=== PATIENT | male | born 1970 | race Caucasian/White ===

== ENCOUNTER → 2020-12-07 15:55 | Outpatient (BNVA) | payer OTHER, SELFPAY | PROVIDERS: Family Provider Nurse Practitioner; PCP Nurse Practitioner; Visit Provider Nurse Practitioner | DX: I10 Essential (primary) hypertension (principal); E29.1 Testicular hypofunction | CPT/HCPCS: 80053; 80061; 84403; 85025 ==

== ENCOUNTER → 2021-12-17 16:27 | Outpatient (BNVA) | payer OTHER, SELFPAY | PROVIDERS: Family Provider Nurse Practitioner; PCP Nurse Practitioner; Visit Provider Nurse Practitioner | DX: E29.1 Testicular hypofunction (principal); I10 Essential (primary) hypertension; R46.81 Obsessive-compulsive behavior | CPT/HCPCS: 80053; 80061; 84403; 85025 ==

== ENCOUNTER → 2022-06-10 16:45 | Outpatient (BNVA) | payer OTHER, SELFPAY | PROVIDERS: Family Provider Nurse Practitioner; PCP Nurse Practitioner; Visit Provider Nurse Practitioner | DX: E29.1 Testicular hypofunction (principal); I10 Essential (primary) hypertension; R46.81 Obsessive-compulsive behavior; Z78.9 Other specified health status | CPT/HCPCS: 80053; 80061; 84403; 85025 ==

== ENCOUNTER → 2022-09-30 11:07 | Outpatient (BNVA) | payer OTHER, SELFPAY | PROVIDERS: Family Provider Nurse Practitioner; PCP Nurse Practitioner; Visit Provider Nurse Practitioner | DX: E29.1 Testicular hypofunction (principal) | CPT/HCPCS: 82040; 84270; 84403 ==

== ENCOUNTER → 2022-12-20 11:25 | Outpatient (BNVA) | payer OTHER, SELFPAY | PROVIDERS: Family Provider Nurse Practitioner; PCP Nurse Practitioner; Visit Provider Nurse Practitioner | DX: E29.1 Testicular hypofunction (principal); Z12.5 Encounter for screening for malignant neoplasm of prostate | CPT/HCPCS: 80053; 80061; 83036; 84403; 85025; G0103 ==

== ENCOUNTER → 2023-08-14 14:08 | Outpatient (BNVA) | payer OTHER, SELFPAY | PROVIDERS: Family Provider Nurse Practitioner; PCP Nurse Practitioner; Visit Provider Nurse Practitioner | DX: I10 Essential (primary) hypertension (principal); E29.1 Testicular hypofunction | CPT/HCPCS: 80053; 80061; 84403; 84443; 85025 ==

== ENCOUNTER → 2024-01-14 11:47 | Outpatient (BNVA) | payer OTHER, SELFPAY | PROVIDERS: Family Provider Nurse Practitioner; PCP Nurse Practitioner; Visit Provider Nurse Practitioner | DX: E29.1 Testicular hypofunction (principal); I10 Essential (primary) hypertension; R46.81 Obsessive-compulsive behavior; Z79.899 Other long term (current) drug therapy | CPT/HCPCS: 80053; 80061; 84403; 85025 ==

== ENCOUNTER → 2024-08-25 12:00 | Outpatient (BNVA) | payer OTHER, SELFPAY | PROVIDERS: Family Provider Nurse Practitioner; PCP Nurse Practitioner; Visit Provider Nurse Practitioner | DX: F41.8 Other specified anxiety disorders (principal); E29.1 Testicular hypofunction; Z12.5 Encounter for screening for malignant neoplasm of prostate | CPT/HCPCS: 80053; 80061; 84403; 85025 ==

== ENCOUNTER → 2025-05-18 13:13 | Outpatient (BNVA) | payer OTHER, SELFPAY | PROVIDERS: Family Provider Nurse Practitioner; PCP Nurse Practitioner; Visit Provider Nurse Practitioner | DX: I10 Essential (primary) hypertension (principal); E29.1 Testicular hypofunction; Z12.5 Encounter for screening for malignant neoplasm of prostate | CPT/HCPCS: 80053; 80061; 82040; 82607; 84270; 84403; 84443; 85025; G0103 ==